=== PATIENT | female | born 1975 | race African-American/Black ===

== ENCOUNTER 2017-06-01 13:49 | Emergency (ER) | payer MEDICAID, SELFPAY | END 2017-06-01 14:30 | disposition home or self-care (01) | LOC: BURERS 13:49 | DX: H81.13 Benign paroxysmal vertigo, bilateral (principal); I10 Essential (primary) hypertension; Z87.891 Personal history of nicotine dependence | CPT/HCPCS: 93005 ==

== ENCOUNTER 2020-01-13 14:47 | Emergency (ER) | payer SELFPAY ==
[2020-01-13] MEDS ORDERED: Lisinopril 20 MG TAB ONE (15:14)
== END 2020-01-13 15:10 | disposition home or self-care (01) ==
LOC: BURERS 14:47
DX: I10 Essential (primary) hypertension (principal); F17.210 Nicotine dependence, cigarettes, uncomplicated
CPT/HCPCS: 99283

== ENCOUNTER 2024-06-16 07:59 | Emergency (ER) | payer OTHER ==
[2024-06-16 08:42] LABS: SARS-CoV-2 E Target Positive; SARS-CoV-2 N2 Target Positive; SARS-CoV-2 NAA Rapid Test DETECTED (NotDetected); SARS-CoV-2 RdRP gene Positive
== END 2024-06-16 08:42 | disposition home or self-care (01) ==
LOC: BURERS 07:59
DX: U07.1 COVID-19 (principal); B34.9 Viral infection, unspecified; J01.90 Acute sinusitis, unspecified; B96.89 Other specified bacterial agents as the cause of diseases classified elsewhere; I10 Essential (primary) hypertension; F17.210 Nicotine dependence, cigarettes, uncomplicated
CPT/HCPCS: 99283; U0002